=== PATIENT | female | born 1995 | race Caucasian/White ===

== ENCOUNTER 2017-10-08 23:10 | Emergency (ER) | payer SELFPAY ==
[2017-10-08] MEDS ORDERED: Neomycin/Polymyxin/HC Otic Solution 10 ML BOT ONE (23:31)
[2017-10-08] MEDS ORDERED: Sulfameth/Trimethoprim DS 800-160mg TAB ONE (23:34)
[2017-10-08] MEDS ORDERED: Ondansetron ODT 4 MG TAB ONE (23:42)
== END 2017-10-08 23:53 | disposition home or self-care (01) ==
LOC: MADERS 23:10
DX: H60.91 Unspecified otitis externa, right ear (principal); H70.91 Unspecified mastoiditis, right ear; F17.200 Nicotine dependence, unspecified, uncomplicated
CPT/HCPCS: 96372; J1040; Q0162

== ENCOUNTER 2017-12-02 15:13 | Emergency (ER) | payer SELFPAY ==
[2017-12-02 15:43] LABS: Bilirubin Negative (Negative); Blood, Urine Trace (Negative); Glucose, Urine (Dipstick) Negative (Negative); Leukocyte Trace (Negative); Nitrite Negative (Negative); Protein, Urine (Dipstick) Negative (Neg-Trace); Urobilinogen 0.2 mg/dL (0.2-1.0)
[2017-12-02 15:45] LABS: Clarity Hazy (Clear); Specific Gravity, Urine 1.025 (1.002-1.036)
[2017-12-02 15:46] LABS: Pregnancy Test - Urine (BHCG) Negative (Negative); Pregu Control Background? CLEAR/WHITE (CLR/WHITE); Pregu Control Bar Appear? YES (CONTROL BAR); Specific Gravity 1.025 (1.002-1.036)
--- NOTE | 2017-12-02 15:50 | RAD ---
THREE VIEWS OF THE RIGHT WRIST: Indication: History of right wrist pain. FINDINGS: NO acute fracture or subluxation is evident. Carpal alignment is preserved. IMPRESSION: No acute osseous abnormality. POS: [facility]
[2017-12-02 15:55] LABS: RBC/HPF 0-3 HPF (0-3); WBC/HPF 0-3 HPF (0-3)
[2017-12-02 15:56] LABS: Bacteria/HPF Rare-Few HPF (None Seen)
[2017-12-02] MEDS ORDERED: Promethazine HCl 25 MG/ML VIAL ONE (16:07)
[2017-12-02] MEDS ORDERED: Ondansetron ODT 4 MG TAB ONE (16:07)
== END 2017-12-02 16:28 | disposition home or self-care (01) ==
LOC: MADERS 15:13
DX: S63.501A Unspecified sprain of right wrist, initial encounter (principal); R11.2 Nausea with vomiting, unspecified; R19.7 Diarrhea, unspecified; F17.210 Nicotine dependence, cigarettes, uncomplicated; W18.30XA Fall on same level, unspecified, initial encounter
CPT/HCPCS: 81003; 81015; 81025; 96372; J2550; Q0162

== ENCOUNTER 2018-04-01 16:57 | Emergency (ER) | payer SELFPAY ==
--- NOTE | 2018-04-01 18:07 | RAD ---
CHEST TWO VIEWS: 04/01/18 HISTORY: Cough. Heart size and mediastinum are within normal limits. The lungs are clear of focal infiltrates. No sig nificant bony findings. IMPRESSION: No active intrathoracic disease. POS: [facility]
== END 2018-04-01 18:47 | disposition home or self-care (01) ==
LOC: MADERS 16:57
DX: B34.9 Viral infection, unspecified (principal); F17.210 Nicotine dependence, cigarettes, uncomplicated
CPT/HCPCS: 71046; 87081; 87430; 87804